=== PATIENT | female | born 1965 | race Caucasian/White ===

== ENCOUNTER 2020-12-31 12:26 | Emergency (ER) | payer BC ==
[2020-12-31 12:31] VITALS: TEMP 98.2
--- NOTE | 2020-12-31 13:27 | ED ---
Lower Extremity Injury HPI - General Chief Complaint: Extremity Injury, Lower Stated Complaint: Rt Leg Pain Time Seen by Provider: 12/31/20 12:36 Source: patient Mode of arrival: ambulatory Limitations: no limitations - History of Present Illness Initial Comments: 55-year-old male presents emergency Department with a chief complaint of right knee pain. Patient reports she felt a pop yesterday when she was in bed and felt sudden onset of pain. States it felt like her patella was not in anatomically correct position. Reports pain is exacerbated with full extension and alleviated at rest. She denies any paresthesias or weakness. Denies any swelling erythema or ecchymosis does report prior injury to the region. Patient reports the pain is otherwise sharp 4/10. - Related Data Home Medications Medication Instructions Recorded Confirmed Biote Hormone Pellets 1 dose SQ DIRECTED 12/31/20 12/31/20 Levothyroxine Sodium [Synthroid] 75 mcg PO DAILY 12/31/20 12/31/20 Allergies Allergy/AdvReac Type Severity Reaction Status Date / Time latex Allergy Anaphylaxis Verified 12/31/20 13:26 Review of Systems ROS Statement: Those systems with pertinent positive or pertinent negative responses have been documented in the HPI. ROS Other: All systems not noted in ROS Statement are negative. Past Medical History Past Medical History: Thyroid Disorder History of Any Multi-Drug Resistant Organisms: None Reported Additional Past Surgical History / Comment(s): Past Psychological History: No Psychological Hx Reported Smoking Status: Current every day smoker Past Alcohol Use History: Daily Past Drug Use History: None Reported General Exam Limitations: no limitations General appearance: alert, in no apparent distress Head exam: Present: atraumatic, normocephalic, normal inspection Eye exam: Present: normal appearance, PERRL, EOMI Pupils: Present: normal accommodation ENT exam: Present: normal exam, normal oropharynx, mucous membranes moist Neck exam: Present: normal inspection, full ROM. Absent: tenderness Respiratory exam: Present: normal lung sounds bilaterally. Absent: respiratory distress Cardiovascular Exam: Present: regular rate, normal rhythm, normal heart sounds. Absent: systolic murmur Extremities exam: Present: normal inspection, tenderness (Lateral tenderness to the right knee. Negative anterior drawer test), normal capillary refill, other (Palpable DP and PT bilaterally sensation intact in the right lower extremity.). Absent: full ROM (Slight limitation with full extension of the right knee), pedal edema, joint swelling, calf tenderness Back exam: Present: normal inspection, full ROM. Absent: tenderness Neurological exam: Present: alert, oriented X3 Psychiatric exam: Present: normal affect, normal mood Skin exam: Present: warm, dry, intact, normal color Course Vital Signs 12/31/20 12:28 Temperature 98.2 F Pulse Rate 73 Respiratory 16 Rate Blood Pressure 107/65 O2 Sat by Pulse 98 Oximetry Medical Decision Making - Medical Decision Making 55-year-old male presents emergency Department with a chief complaint of right knee pain. On physical examination, patient is neurovascularly intact, however do suspect a possible ligamentous injury. X-ray shows no acute findings. Did advise the patient to follow with an teacher selection specialist and possibly obtain an MRI. Strict return primary thoroughly discussed the patient was understanding and agreeable. Case discussed with Dr. Hill. Disposition Clinical Impression: Right knee sprain Disposition: HOME SELF-CARE Condition: Stable Instructions (If sedation given, give patient instructions): Knee Pain (ED) Additional Instructions: Follow-up with teacher selection specialist. Return to emergency department if symptoms worsen. Is patient prescribed a controlled substance at d/c from ED?: No Referrals: Rajan Pereira MD [Primary Care Provider] - 1-2 days Adeel Baron DO [Doctor of Osteopathic Medicine] - 1-2 days Time of Disposition: 14:38
--- NOTE | 2020-12-31 14:32 | XR ---
EXAMINATION TYPE: XR knee complete RT DATE OF EXAM: 12/31/2020 COMPARISON: NONE HISTORY: 55-year-old female with knee pain, limited range of motion and unable to bear weight. TECHNIQUE: 3 views FINDINGS: No acute fracture, subluxation, or dislocation seen. There is some obliquity on the lateral view whic h limits assessment. No obvious knee joint effusion is seen. IMPRESSION: No acute osseous abnormality seen. If symptoms persist or concern for internal derangement, MRI can b e performed.
[2020-12-31 15:13] VITALS: BP 125/77; PULSE 58; RESP 20
== END 2020-12-31 15:13 | disposition home or self-care (01) ==
LOC: EC 12:26
DX: S83.91XA Sprain of unspecified site of right knee, initial encounter (principal); E07.9 Disorder of thyroid, unspecified; X50.9XXA Other and unspecified overexertion or strenuous movements or postures, initial encounter
CPT/HCPCS: 99283

== ENCOUNTER 2022-06-01 13:54 | Emergency (ER) | payer BC ==
[2022-06-01 14:28] VITALS: TEMP 99
--- NOTE | 2022-06-01 18:24 | ED ---
General Adult HPI - General Chief complaint: Nausea/Vomiting/Diarrhea Stated complaint: Tooth Pain Time Seen by Provider: 06/01/22 18:02 Source: patient, RN notes reviewed Mode of arrival: ambulatory Limitations: no limitations - History of Present Illness Initial comments: Patient is a 56-year-old female presenting to the emergency room for further evaluation after being at urgent care earlier today. She states that she was at urgent care for fevers and nausea without vomiting and was advised to come to the emergency room for further evaluation for possible sepsis or infection in the bone. She did not have blood work or imaging completed at urgent care she did have a Covid and influenza test which she reports were negative. She did not bring any documentation with her from [facility]. She reports that she had tooth extraction of tooth #30 and #19 approximately 1 week ago by and out office rn. She states that previous to that extraction she tried to follow-up with her own dentist and he was not see her due to pain she was having. She reports that tooth #19 was infected at the time of extraction. She was placed on amoxicillin which she reports she has been taking as prescribed along with ibuprofen to utilize as needed. She denies taking any antipyretics to reduce her fever however she does have missing tablets from her ibuprofen bottle that she has brought with her today. She reports that she had significant pain swelling and tenderness to both teeth/gum/under chin region postoperatively but that this is slowly improving; she reports continued tenderness on the right submandibular region. She also reports an array of symptoms over the last week including racing heart rate, shortness of breath, generalized malaise, decreased appetite, frequent diarrhea, nausea without vomiting and fevers as stated above. She reports that her last episode of diarrhea was at 10:00 this morning. As previously stated she was already tested for Covid and influenza earlier today. She has a past medical history significant for hypothyroidism. - Related Data Home Medications Medication Instructions Recorded Confirmed Biote Hormone Pellets 1 dose SQ DIRECTED 12/31/20 12/31/20 Levothyroxine Sodium [Synthroid] 75 mcg PO DAILY 12/31/20 12/31/20 Previous Rx's Medication Instructions Recorded clindamycin HCL [Cleocin] 300 mg PO Q6HR 10 Days #40 cap 06/01/22 Allergies Allergy/AdvReac Type Severity Reaction Status Date / Time latex Allergy Anaphylaxis Verified 06/01/22 14:27 Review of Systems ROS Statement: Those systems with pertinent positive or pertinent negative responses have been documented in the HPI. ROS Other: All systems not noted in ROS Statement are negative. Past Medical History Past Medical History: Thyroid Disorder History of Any Multi-Drug Resistant Organisms: None Reported Additional Past Surgical History / Comment(s): Past Psychological History: No Psychological Hx Reported Smoking Status: Current every day smoker Past Alcohol Use History: None Reported Past Drug Use History: None Reported General Exam General appearance: alert, in no apparent distress Head exam: Present: atraumatic, normocephalic, normal inspection Eye exam: Present: normal appearance, PERRL, EOMI. Absent: scleral icterus, conjunctival injection, periorbital swelling ENT exam: Present: mucous membranes moist Expanded Ear exam: Present: normal external inspection Mouth exam: Present: normal external inspection Teeth exam: Present: gingival enlargement (mild), other (No abscess induration or swelling. Well-healing postextraction sites to 2 #19 and 2 #30.) Neck exam: Present: normal inspection, tenderness, full ROM, lymphadenopathy (shotty) Respiratory exam: Present: normal lung sounds bilaterally. Absent: respiratory distress, wheezes, rales, rhonchi, stridor Cardiovascular Exam: Present: regular rate, normal rhythm, normal heart sounds, systolic murmur (II/). Absent: diastolic murmur, rubs, gallop, clicks GI/Abdominal exam: Present: soft, normal bowel sounds. Absent: distended, tenderness, guarding, rebound, rigid Extremities exam: Present: normal inspection. Absent: pedal edema, joint swelling Back exam: Present: normal inspection Neurological exam: Present: alert, oriented X3, CN II-XII intact Psychiatric exam: Present: normal affect, normal mood Skin exam: Present: warm, dry, intact, normal color. Absent: rash Course Vital Signs 06/01/22 06/01/22 14:25 18:41 Temperature 99 F Pulse Rate 85 90 Respiratory 16 18 Rate Blood Pressure 118/71 120/76 O2 Sat by Pulse 97 99 Oximetry Medical Decision Making - Medical Decision Making 56-year-old female presenting to the emergency department with multiple symptoms as listed in HPI. No indication for repeat Covid or influenza testing as she reports that testing is negative. No significant abnormalities on ENT exam indicating need for diagnostic imaging. Will obtain CBC and BMP. Will defer IV antibiotics at this time along with IV fluids pending lab results. High probability for prolonged infection secondary to surgical intervention of abscessed tooth without sufficient antibiotic coverage as she is only on amoxicillin will likely plan for discharge on oral antibiotics with the amplified coverage. CBC reveals leukopenic with trend on the lower end of normal previously. No indication for further workup regarding leukopenia at this time. BMP shows slightly low sodium and potassium level BUN and creatinine normal. No indication for IV fluids or supplementation at this time. Encouraged follow-up with primary care provider for further evaluation of leukopenia. Discussed typical course of dental abscess and encouraged continuation of ibuprofen as needed for pain. Will discharge home in stable condition with change of oral antibiotics, clindamycin with an oral dose at this time. Case discussed with Dr. Melo. - Lab Data Result diagrams: 06/01/22 18:33 06/01/22 18:33 Lab Results 06/01/22 06/01/22 Range/Units 18:33 18:33 WBC 2.5 L (3.8-10.6) k/uL RBC 4.58 (3.80-5.40) m/uL Hgb 13.4 (11.4-16.0) gm/dL Hct 39.4 (34.0-46.0) % MCV 86.0 (80.0-100.0) fL MCH 29.2 (25.0-35.0) pg MCHC 33.9 (31.0-37.0) g/dL RDW 12.7 (11.5-15.5) % Plt Count 131 L (150-450) k/uL MPV 8.9 Sodium 135 L (137-145) mmol/L Potassium 3.4 L (3.5-5.1) mmol/L Chloride 105 (98-107) mmol/L Carbon Dioxide 21 L (22-30) mmol/L Anion Gap 9 mmol/L BUN 13 (7-17) mg/dL Creatinine 0.68 (0.52-1.04) mg/dL Est GFR (CKD-EPI)AfAm >90 (>60 ml/min/1.73 sqM) Est GFR (CKD-EPI)NonAf >90 (>60 ml/min/1.73 sqM) Glucose 87 (74-99) mg/dL Calcium 8.8 (8.4-10.2) mg/dL Disposition Clinical Impression: Abscess, dental Disposition: HOME SELF-CARE Condition: Stable Instructions (If sedation given, give patient instructions): Dental Abscess (ED), Acute Nausea and Vomiting (ED) Additional Instructions: Please complete course of clindamycin antibiotic as prescribed. Warm salt water rinses encouraged for any pain and swelling in the mouth. Good oral hydration encouraged. Continue to utilize already prescribed ibuprofen as needed for fevers and pain. Do not take other NSAIDs including aspirin with ibuprofen. Please follow-up with your oral surgeon and her primary care provider. It is rec ommended further evaluation regarding low blood white blood cell count is completed. Please return to the Emergency Department if symptoms worsen or any other concerns. Prescriptions: clindamycin HCL [Cleocin] 300 mg PO Q6HR 10 Days #40 cap Is patient prescribed a controlled substance at d/c from ED?: No Referrals: None,Stated [Primary Care Provider] - 1-2 days Time of Disposition: 19:12
[2022-06-01 18:42] VITALS: BP 120/76; PULSE 90; RESP 18
[2022-06-01 18:48] LABS: HCT 39.4 % (34.0-46.0); HGB 13.4 gm/dL (11.4-16.0); MCH 29.2 pg (25.0-35.0); MCHC 33.9 g/dL (31.0-37.0); Mean Platelet Volume 8.9; Platelet Count 131 k/uL (150-450); RBC 4.58 m/uL (3.80-5.40); RDW 12.7 % (11.5-15.5); WBC 2.5 k/uL (3.8-10.6)
[2022-06-01 18:59] LABS: African American GFR (CKD) >90 (>60 ml/min/1.73 sqM); Anion Gap 9 mmol/L; Blood Urea Nitrogen 13 mg/dL (7-17); Calcium 8.8 mg/dL (8.4-10.2); Carbon Dioxide 21 mmol/L (22-30); Chloride 105 mmol/L (98-107); Glucose 87 mg/dL (74-99); Non-African American GFR(CKD) >90 (>60 ml/min/1.73 sqM); Potassium 3.4 mmol/L (3.5-5.1); Sodium 135 mmol/L (137-145)
[2022-06-01] MEDS ORDERED: CLINDAMYCIN 150 MG CAP PO STA (19:10)
[2022-06-01 19:24] LABS: Eosinophils # (M) 0.03 k/uL (0-0.7); Lymphocytes # (M) 1.23 k/uL (1.0-4.8); Monocytes # (M) 0.23 k/uL (0-1.0); Neutrophils # (M) 1.03 k/uL (1.3-7.7); Neutrophils % (M) 41 %; Nucleated Red Blood Cells 0 /100 WBC (0-0); Total Cells Counted 100
[2022-06-01 19:25] LABS: RBC Morphology Normal
== END 2022-06-01 19:48 | disposition home or self-care (01) ==
LOC: EC 13:54
DX: K04.7 Periapical abscess without sinus (principal); E07.9 Disorder of thyroid, unspecified; F17.200 Nicotine dependence, unspecified, uncomplicated; Z91.040 Latex allergy status; Z79.890 Hormone replacement therapy
CPT/HCPCS: 36415; 80048; 85025; 99283

== ENCOUNTER → 2024-01-19 | Outpatient (CLI) | payer BC ==
--- NOTE | 2024-01-23 09:33 | MM ---
Reason for Exam: Screening (asymptomatic). Baseline mammogram. Patient History: Menarche at age 17. Patient has no children. Postmenopausal. 11/08/1983, Excisional Biopsy on the Right side. Risk Values: Berna 5 year model risk: 1.5%. NCI Lifetime model risk: 9.5%. Prior Study Comparison: Patient's first Mammogram. Tissue Density: The breasts are extremely dense, which lowers the sensitivity of mammography. Findings: Analyzed By CAD. Scattered punctate calcifications are seen bilaterally. No mass or distortion. Overall Assessment: Benign, BI-RAD 2 Management: Screening Mammogram of both breasts in 1 year. . Patient should continue monthly self-breast exams. A clinical breast exam by your physician is recommended on an annual basis. This exam should not preclude additional follow-up of suspicious palpable abnormalities. Note on Berna scores and lifetime risk: 1. A Berna score greater than 3% is considered moderate risk. If this is the case, consider specialist referral to assess eligibility for a risk reducing agent. 2. If overall lifetime risk for the development of breast cancer is 20% or higher, the patient may qualify for future screening with alternating mammogram and breast MRI. Electronically signed and approved by: Randolph Ward M.D. Radiologis
== END | disposition home or self-care (01) ==
LOC: RADMAMWWP 14:55
PROVIDERS: ATTEND Family Medicine
DX: Z12.31 Encounter for screening mammogram for malignant neoplasm of breast (principal); Z78.0 Asymptomatic menopausal state
CPT/HCPCS: 77063; 77067

== ENCOUNTER → 2024-01-22 | Outpatient (CLI) | payer BC ==
[2024-01-22 10:42] LABS: African American GFR (CKD) >90 (>60 ml/min/1.73 sqM); Blood Urea Nitrogen 19 mg/dL (7-17); Non-African American GFR(CKD) >90 (>60 ml/min/1.73 sqM)
--- NOTE | 2024-01-22 14:01 | CT ---
EXAMINATION TYPE: CT ChestAbdPelvis w con DATE OF EXAM: 01/22/2024 COMPARISON: None HISTORY: 58-year-old female R83.4 weight loss, R53.83, fatigue, Abdominal pain TECHNIQUE: Contiguous axial scanning of the chest, abdomen, and pelvis performed with IV Contrast, pa tient injected with 100 mL of Isovue 300. Delayed images through the kidneys were obtained. Coronal/s agittal reconstructions performed. CT DLP: 525.3 mGycm Automated exposure control for dose reduction was used. FINDINGS: Chest: Heart normal size without pericardial effusion. Aorta normal caliber with conventional arch vessel branching anatomy. Prominent 9 mm right hilar lymph node probably reactive/post inflammatory. Otherwise, no thoracic lym phadenopathy by CT size criteria. Mild to moderate emphysematous change in the lungs. Mild biapical pleural-parenchymal scarring. Stran dy subpleural atelectasis or scarring at the posterior lung bases. No consolidation or pleural effusi on. No suspicious pulmonary nodule is seen. ABDOMEN: 6 mm hypodensity left liver lobe suggestive of a tiny cyst. No other focal liver lesion or biliary du ctal dilatation. Portal venous system is patent. Gallbladder, right adrenal gland, spleen, and pancreas within normal limits. A few small renal cortical cysts measuring up to 8 mm on either side. Symmetric uptake and excretion of contrast from both kidneys. Mild thickening of the left adrenal gland without discrete nodularity. Scattered prominent mesenteric lymph nodes measuring up to 1.1 cm reactive/post inflammatory. No dilated small bowel, free fluid, or free air. Short segments of the normal appendix are noted. Oral contrast progressed to the level of the upper d escending colon. There is moderate stool within the left side of the colon and suspected underlying d iverticular change of the mid to distal sigmoid colon. No pericolic inflammatory changes seen. Pelvis: Bladder nondistended. Uterus anteverted. Ovaries are obscured by adjacent cluster of bowel loops. No abnormal fluid collection in the pelvis or pelvic lymphadenopathy. Bones: Moderate degenerative disc disease L-1-L2, L4-L5, and L5-S1. Degenerative grade 1 retrolisthesis L2-L 3 and L3-L4. No osseous destructive process. IMPRESSION: 1. COPD WITH MILD TO MODERATE EMPHYSEMA. 2. NUMEROUS BORDERLINE SIZED MESENTERIC LYMPH NODES MEASURING UP TO 1.1 CM ARE PROBABLY REACTIVE OR P OSTINFLAMMATORY. RECOMMEND A 3-6 MONTH FOLLOW-UP CT TO ENSURE STABILITY/RESOLUTION. 3. MID TO DISTAL SIGMOID COLONIC DIVERTICULOSIS. MODERATE STOOL IN THE LEFT SIDE OF THE COLON.
== END | disposition home or self-care (01) ==
LOC: RADCTMAIN 09:58
PROVIDERS: ATTEND Family Medicine
DX: R53.83 Other fatigue (principal); R63.4 Abnormal weight loss; J43.9 Emphysema, unspecified; K57.30 Diverticulosis of large intestine without perforation or abscess without bleeding; J44.9 Chronic obstructive pulmonary disease, unspecified; Z72.0 Tobacco use
CPT/HCPCS: 82565; 84520; 71260; 74177; 36415; Q9967

== ENCOUNTER → 2024-02-15 | Outpatient (CLI) | payer BC ==
--- NOTE | 2024-03-06 11:31 | PE ---
Patient: Casi Emmanuel A Ordering Physician: Unknown, Unknown ID: [id number] Phone, Pager: Phone : N/A Pager: N/A : [phone] Age/Gender: 58Y, F Primary Location: N/A Procedure: PET CT fusion sku ll to thigh Study Date: 02/15/2024 2:24:00 PM EXAMINATION TYPE: PET CT fusion skull to thigh DATE OF EXAM: 02/18/2024 CLINICAL INDICATION: Lymphadenopathy TECHNIQUE: Following the intravenous administration of 11.85 mCi of F-18 FDG, whole body images are performed from the skull base to the midthigh. Images are reviewed on the computer in the coronal, axial, and sagittal planes. Reconstructed rotating images are created on independent workstation and reviewed on the computer. A non-contrast CT is performed in conjunction with the PET scan. Glucose level 80 mg/dL CT DLP: 201 mGycm, Automated exposure control for dose reduction was used. COMPARISON: CT 01/22/2024, PET/CT None, MRI: None FINDINGS: Mediastinal SUV mean is 1.7. Hepatic parenchyma SUV mean is 2.2. SKULL BASE AND NECK: No suspicious radiotracer activity. CHEST, MEDIASTINUM, AND HILAR REGION: No suspicious radiotracer activity. ABDOMEN AND PELVIS: No suspicious radiotracer activity. Lymph nodes in the mesentery are not FDG avid . MUSCULOSKELETAL STRUCTURES: No suspicious radiotracer activity. OTHER CT: Scattered colonic diverticula. Moderate amount stool throughout the colon. IMPRESSION: No suspicious radiotracer activity. Mesenteric lymph nodes are not FDG avid and likely reactive. . Co nsider surveillance with CT in 6 months with IV and oral contrast.
== END | disposition home or self-care (01) ==
LOC: EDBD → RADPETMAIN 13:00
PROVIDERS: ATTEND Family Medicine
DX: R59.0 Localized enlarged lymph nodes (principal)
CPT/HCPCS: 78815; A9552

== ENCOUNTER 2024-04-23 07:43 | Day surgery (SDC) | payer BC ==
[~2024-04-23 07:43] MED LIST: LIDOCAINE 1% (10MG/ML) FOR IV START INTRADERMA PRN
[2024-04-23 08:01] VITALS: RESP 18; TEMP 97.5
[2024-04-23] MEDS: IV FLUID CONTINUATION 1,000 ML IV ONE (08:08)
[2024-04-23] MEDS: LACTATED RINGERS 1,000 ML IV SCH (08:08)
[2024-04-23] MEDS ORDERED: PROPOFOL 10 MG/ML 20 ML VIAL IV ONE (08:12)
[2024-04-23] MEDS ORDERED: LIDOCAINE 2% (PF) 20 MG/ML 5 ML VIAL ONE (08:12)
--- NOTE | 2024-04-23 08:18 | P.GSHP ---
History of Present Illness H&P Date: 04/23/24 Chief Complaint: Abdominal pain, screening, weight loss 58-year-old female here for upper and lower endoscopy. Patient has not had either test in the past. Mild upper abdominal pain recently. Some unexplained weight loss. CAT scan shows some mildly enlarged mesenteric lymph nodes. No family history of colon cancer. Past Medical History Past Medical History: COPD Additional Past Medical History / Comment(s): pre copd, ct scan then had pet scan now has appt with oncologist 04/2024 History of Any Multi-Drug Resistant Organisms: None Reported Past Surgical History: Breast Surgery, Orthopedic Surgery Additional Past Surgical History / Comment(s): , rt breast lumpectomy, meniscus rt knee, Past Anesthesia/Blood Transfusion Reactions: No Reported Reaction Smoking Status: Current some day smoker - Past Family History Brother(s) Family Medical History: Cancer Additional Family Medical History / Comment(s): grade 4 lymphoma Medications and Allergies Home Medications Medication Instructions Recorded Confirmed Type No Known Home Medications 04/19/24 04/23/24 History Allergies Allergy/AdvReac Type Severity Reaction Status Date / Time latex Allergy Anaphylaxis Verified 04/23/24 07:55 Surgical - Exam Vital Signs Temp Pulse Resp BP Pulse Ox 97.5 F L 67 18 108/53 93 L 04/23/24 07:59 04/23/24 07:59 04/23/24 07:59 04/23/24 07:59 04/23/24 07:59 Physical exam: General: Well-developed, well-nourished HEENT: Normocephalic, sclerae nonicteric Abdomen: Nontender, nondistended Extremities: No edema Neuro: Alert and oriented Assessment and Plan (1) Colon cancer screening Narrative/Plan: Will proceed with upper and lower endoscopy at this time. Current Visit: Yes Status: Acute Code(s): Z12.11 - ENCOUNTER FOR SCREENING FOR MALIGNANT NEOPLASM OF COLON SNOMED Code(s): 456330388
--- NOTE | 2024-04-23 08:36 | P.PCN ---
Date of Procedure: 04/23/24 Procedure(s) Performed: PREOPERATIVE DIAGNOSIS: Abdominal pain, screening, weight loss POSTOPERATIVE DIAGNOSIS: Mild duodenitis, mild gastritis, diverticulosis PROCEDURE: 1. EGD with biopsy 2. Colonoscopy ANESTHESIA: MAC SURGEON: Rui Puentes M.D. SPECIMENS: Duodenum, antrum ENDOSCOPIC PROCEDURE: The patient was on the endoscopy table in the left decubitus position. The Olympus gastroscope was inserted into the oropharynx and passed under direct visualization to the region of the third portion of the duodenum. From that point the scope was slowly withdrawn inspecting all surfaces carefully. There was minimal inflammatory changes in the duodenum. Biopsies took place. No ulcerations or neoplastic changes were noted. The pylorus was widely patent. The stomach was carefully inspected. There was mild gastritis. A biopsy of the antrum took place to rule out H. pylori. Retroflexion revealed a normal hiatus. The esophagus was then carefully examined. There were no neoplastic inflammatory or polypoid lesions throughout the visualized esophagus. The patient was kept on the endoscopy table in the left decubitus position. The Olympus colonoscope was inserted into the anus and passed under direct visualization to the base of the cecum. The appendiceal orifice was visualized. From that point the scope was slowly withdrawn inspecting all surfaces carefully. There were no neoplastic inflammatory or polypoid lesions throughout the cecum, ascending, transverse, descending, sigmoid and rectum. There was scattered moderate diverticulosis noted. Digital rectal examination was normal. The patient was taken to the recovery room in stable condition per anesthesia guidelines. RECOMMENDATIONS: Resume diet. Repeat colonoscopy 10 years. Await biopsy results.
[2024-04-23 09:15] VITALS: BP 112/72; PULSE 62
== END 2024-04-23 09:31 | disposition home or self-care (01) ==
LOC: ORWHC2ENDO 07:43
PROVIDERS: ATTEND Surgery
DX: Z12.11 Encounter for screening for malignant neoplasm of colon (principal); K57.90 Diverticulosis of intestine, part unspecified, without perforation or abscess without bleeding; K29.80 Duodenitis without bleeding; K29.70 Gastritis, unspecified, without bleeding; R63.4 Abnormal weight loss; R59.0 Localized enlarged lymph nodes; J44.9 Chronic obstructive pulmonary disease, unspecified; F17.210 Nicotine dependence, cigarettes, uncomplicated; Z91.040 Latex allergy status
CPT/HCPCS: 88305; 43239; J2704; J2003; G0121

== ENCOUNTER → 2024-06-20 | Outpatient (CLI) | payer BC ==
--- NOTE | 2024-06-20 15:19 | USB ---
Reason for Exam: Follow-up at short interval from prior study. Patient History: Menarche at age 17. Patient has no children. Postmenopausal. 11/08/1983, Excisional Biopsy on the Right side. Risk Values: Berna 5 year model risk: 1.5%. NCI Lifetime model risk: 9.5%. Technique: Method: Whole Breast Handheld. Prior Study Comparison: 01/19/2024 Bilateral MG 3D screening mammo w/cad, [facility]. Findings: The whole breast of both breasts, the axilla of both breasts and the retroareolar of both breasts were scanned. A complete US of all four quadrants of the breast, axilla, and retro-areolar region were reviewed. No solid or cystic masses are identified. Dense tissues are present throughout. A few prominent but nonenlarged axillary nodes are also noted. Overall Assessment: Benign, BI-RAD 2 Management: Screening Mammogram of both breasts in 6 months. A clinical breast exam by your physician is recommended on an annual basis and results should be correlated with mammographic findings. This exam should not preclude additional follow-up of suspicious palpable abnormalities. Results were given to the patient verbally at the time of exam. [facility], , 06/20/2024 3:16 PM. Electronically signed and approved by: Mariah Zhu M.D. Radiologist
== END | disposition home or self-care (01) ==
LOC: EDBD → RADUSWWP 13:46
PROVIDERS: ATTEND Family Medicine
DX: R92.30 Dense breasts, unspecified (principal); Z78.0 Asymptomatic menopausal state

== ENCOUNTER → 2024-11-26 | Outpatient (CLI) | payer BC ==
--- NOTE | 2024-11-30 00:07 | CT ---
EXAMINATION TYPE: CT abdomen pelvis w con DATE OF EXAM: 11/26/2024 11:58 AM COMPARISON: CT chest abdomen and pelvis 01/22/2024 CLINICAL INDICATION: Female, 59 years old with history of R59.0 LYMPHADNOPOTHY R63.4 WEIGHT LOSS, Abn ormal weight loss. Lymphadnopothy. TECHNIQUE: Axial images were obtained from above the diaphragm to the pubic rami in the axial plane a t 5 mm thick sections. Reconstructed images are reviewed on the computer in the coronal plane. CONTRAST: 100 ml mL of Isovue 300. Study performed with Oral Contrast DLP: 439.5 mGycm, Automated exposure control for dose reduction was used. FINDINGS: Limited CT sections are obtained the lung bases. The lung bases are clear. CT ABDOMEN: Liver: Small cyst is within the left lobe liver. Spleen: Normal Pancreas: Normal Adrenal glands: The adrenal glands are normal. Gallbladder: Normal Kidneys: No masses are evident. No hydronephrosis is present. No cysts are present. Delayed images were obtained through the kidneys, which remain unremarkable. Aorta: Normal Inferior vena cava: Normal. CT PELVIS: Loops of bowel within the abdomen and pelvis are normal. Diverticular changes are within the sigmoid colon. There are loops of bowel which are incompletely distended or lack oral contrast limiting th eir evaluation. Appendix: Normal as visualized. Urinary bladder: Normal. Genitourinary structures: Uterus and adnexa appear normal Osseous structures: No suspicious lytic or sclerotic lesions. Lymphadenopathy: No suspicious enlarged lymphadenopathy is evident. Retrocrural, periaortic and retro caval, inguinal, iliac chain are without enlarged lymphadenopathy. Few small mesenteric lymph nodes a re present. Enlarged lymphadenopathy is not identified IMPRESSION: 1. Sigmoid diverticulosis without acute diverticulitis. 2. Previous mesenteric adenopathy appears resolved [facility], , 11/30/2024 12:04 AM
== END | disposition home or self-care (01) ==
LOC: RADCTMAIN 10:00
PROVIDERS: ATTEND Internal Medicine Hematology & Oncology
DX: K57.30 Diverticulosis of large intestine without perforation or abscess without bleeding (principal); R63.4 Abnormal weight loss; R59.0 Localized enlarged lymph nodes; J44.9 Chronic obstructive pulmonary disease, unspecified
CPT/HCPCS: 74177; Q9967